=== PATIENT | male | born 1965 | race Two or more races ===

== ENCOUNTER 2019-12-16 01:36 | Emergency (ER) | payer SELFPAY ==
[~2019-12-16] VITALS: Ht 162.6 cm; Wt 90.7 kg
[2019-12-16 01:40] VITALS: BP 134/84
--- NOTE | 2019-12-16 01:47 | NUR ---
REMOVED 2 TASER POINT NEEDLES OFF PATIENT.
[2019-12-16] MEDS ORDERED: LIDOCAINE /MPF 1% VIAL 5 ML VIAL ONE (01:49)
--- NOTE | 2019-12-16 01:55 | NUR ---
Patient discharged to home in stable condition. Written and verbal after care instructions given. Patient verbalizes understanding of instruction.
[2019-12-16] MEDS ORDERED: LIDOCAINE 1%-EPI 1:100,000 20 ML VIAL TP ONE (02:00)
== END 2019-12-16 02:05 ==
LOC: ER 01:38
DX: S30.851A Superficial foreign body of abdominal wall, initial encounter (principal); X58.XXXA Exposure to other specified factors, initial encounter; Y93.89 Activity, other specified; Y92.89 Other specified places as the place of occurrence of the external cause; Y99.8 Other external cause status
CPT/HCPCS: 99284; J3490